=== PATIENT | male | born 1935 | race Caucasian/White ===

== ENCOUNTER → 2024-02-03 08:01 | Outpatient (REF) | payer MEDICARE, BC, SELFPAY | LOC: RAD 08:01 | PROVIDERS: ATTENDING PHYSICIAN Internal Medicine Hematology & Oncology; FAMILY PHYSICIAN Family Medicine | DX: I82.411 Acute embolism and thrombosis of right femoral vein (principal); C79.51 Secondary malignant neoplasm of bone; C61 Malignant neoplasm of prostate | CPT/HCPCS: 74178; Q9967 ==